=== PATIENT | male | born 1985 | race Native Hawaiian/Other Pacific Islander ===

== ENCOUNTER 2017-10-04 19:42 | Observation (INO) | payer BC ==
[2017-10-04] MEDS ORDERED: NS 1,000 ML IV ONE (19:43)
--- NOTE | 2017-10-04 19:54 | CPEKG ---
Heart Rate: 104 RR Interval: 577 P-R Interval: 140 QRSD Interval: 86 QT Interval: 364 QTC Interval: 479 P [place]: 30 QRS [place]: 32 T Wave [place]: 88 EKG Severity - ABNORMAL ECG - EKG Impression: SINUS TACHYCARDIA EKG Impression: LEFT ATRIAL ABNORMALITY EKG Impression: NONSPECIFIC T ABNORMALITIES, LATERAL LEADS EKG Impression: BORDERLINE PROLONGED QT INTERVAL Electronically Signed By: Frankie Monson 07-Oct-2017 20:50:02
--- NOTE | 2017-10-04 20:00 | EDPHY ---
HPI/HX/ROS/PE/MDM Narrative: CHIEF COMPLAINT: Seizure, altered mental status HPI: The patient is a 33-year-old male who was brought just waiting the [employer] triathlon today. At some point prior to arrival, he apparently had a seizure. EMS was contacted and the patient became extremely combative. They were forced to give the patient Versed in order to sedate him to be able to transport him to the hospital. Patient is postictal and confused per the report. At this point I do not have any information regarding the length or timing of his seizure. Patient is unable to provide me any history. Glucose in the field was normal. EKG in field showed sinus tachycardia. REVIEW OF SYSTEMS: Unable to obtain secondary altered mental status. PMH: Unable to obtain. SOCIAL HISTORY: Unable to obtain. PHYSICAL EXAM: General:Patient is heavily sedated and confused. Head: Hematoma present to left occiput. No laceration. No deformity/ depression. ENT:Eyes are normal to inspection. ENT inspection normal. Neck: Normal inspection. Full range of motion. Respiratory:No respiratory distress. Breath sounds normal bilaterally. Cardiovascular: Tachycardic rate, regular rhythm. Strong peripheral pulses. Normal cap refill. Abdomen:The abdomen is nontender to palpation. There are no peritoneal signs. Skin: Normal color. No rash. Warm and dry. Extremities: Normal appearance. Full range of motion. Neuro: No clear focal deficits but noncooperative with exam. (Bernard Salamanca) ED Course: Suspect seizure is related to electrolyte abnormality following [employer]. Plan for IV, labs, EKG, IV fluid repletion, and close monitoring. Labs show hyponatremia at 119. 100mL IV hypertonic NS ordered. 2049: Reassessed patient. He is still confused, but has improved from earlier. Family is now at bedside. Hypertonic NS is running. 2104: Patient is starting to fight again and is unable to follow commands. 1mg IV Ativan administered. He is trying to urinate. Two security guards at bedside assisting. 2110: Additional 1mg IV Ativan administered. Head CT ordered. HR 113. 2300: Patient given two more rounds of Ativan in order to sedate enough to obtain CTH to rule out traumatic etiology of his AMS. The patient has maintained a patent airway throughout. I personally walked to CT with patient in order to maintain constant assessment and assist with obtaining the study. I have asked for an additional 100ml bolus of hypertonic saline to be given. Patient signed out to Dr. Jacome. Patient will need to be admitted for further treatment and close observation. 2310: Ct read as negative for trauma by Dr. Infante. I spent a total of 90 minutes of critical care time in obtaining history, performing a physical exam, bedside monitoring of interventions, collecting and interpreting tests and discussion with consultants but not including time spent performing procedures. (Bernard Salamanca) 0239AM: Patient is sleepy and intermittently agitated. I am repeating his chemistry at this time. Patient will need to be admitted to the hospital most likely ICU admission for his level of agitation. I spoke with Dr. Barnes who agrees to admit. 0340AM; I reviewed this patient's chemistry is sodium is 127. After discussion with the hospitalist service we agreed to give him another dose of hypertonic saline. CK is noted to be elevated. His creatinine is normal. 0408AM: Spoke with Dr. Ayala with Nephrology. Discussed this case in detail. He will see in consult the patient. He does not want any normal saline her IV fluids at this time he is fine with hypertonic saline. Agrees for ICU admission. I discussed this case in detail with the hospitalist service. Of note this patient was in the emergency room for prolonged period of time as we are watching his mental status closely. He did receive large amount Ativan to get a CT scan given his head trauma. The patient has been sleeping most of the time in the emergency room he is still altered. There has been no further seizure activity. The patient need to go to the ICU due to altered mentation. Patient's complex with hyponatremia, along with a seizure that brought him to the emergency room along with benzodiazepines given initially for CT imaging. Discussed this case in detail with the junior brand manager as well as hospitalist service. 0413: At this time patient is stable. (Cristo Jacome) MDM: This patient presents with seizure and acute encephalopathy secondary to hyponatremia. I see no signs of intracranial bleed or other significant trauma. Patient was treated with hypertonic saline according to established guidelines. He will require admission to the hospital. (Bernard Salamanca) - Data Points Imaging Results: Imaging Impressions Head CT 10/04/17 21:13 Impression: No acute intracranial findings. Findings discussed with Bernard Salamanca MD 10/04/2017 at 22:08. Laboratory Results: Laboratory Results 10/04/17 19:48 10/05/17 02:48 10/05/17 10/04/17 10/04/17 02:48 22:19 21:29 WBC RBC Hgb POC Hgb 14.3 gm/dL gm/dL 14.3 gm/dL gm/dL (13.7-17.5) (13.7-17.5) Hct POC Hct 42 % % 42 % % (40-51) (40-51) MCV MCH MCHC RDW Plt Count MPV Neut % (Auto) Lymph % (Auto) [place] % (Auto) Eos % (Auto) Baso % (Auto) Nucleat RBC Rel Count Absolute Neuts (auto) Absolute Lymphs (auto) Absolute Monos (auto) Absolute Eos (auto) Absolute Basos (auto) Absolute Nucleated RBC Immature Gran % Immature Gran # POC Sodium 126 mEq/L L mEq/L 123 mEq/L L mEq/L (135-145) (135-145) Sodium 127 mEq/L L mEq/L (135-145) POC Potassium 3.7 mEq/L mEq/L 4.0 mEq/L mEq/L (3.3-5.0) (3.3-5.0) Potassium 4.8 mEq/L mEq/L (3.3-5.0) POC Chloride 87 mEq/L L mEq/L 85 mEq/L L mEq/L (97-110) (97-110) Chloride 96 mEq/L L mEq/L (97-110) Carbon Dioxide 21 mEq/l L mEq/l (22-31) Anion Gap 10 mEq/L mEq/L (8-16) POC BUN 16 mg/dL mg/dL 16 mg/dL mg/dL (7-23) (7-23) BUN 12 mg/dL mg/dL (7-23) Creatinine 0.7 mg/dL mg/dL (0.7-1.3) POC Creatinine 1.1 mg/dL mg/dL 1.0 mg/dL mg/dL (0.7-1.3) (0.7-1.3) Estimated GFR > 60 Glucose 116 mg/dL H mg/dL (70-100) POC Glucose 128 mg/dL H mg/dL 142 mg/dL H mg/dL (70-100) (70-100) Calcium 7.4 mg/dL L mg/dL (8.5-10.4) Creatine Kinase 02105 IU/L H IU/L (0-224) CK-MB (CK-2) Fraction 45.10 ng/mL H ng/mL (0.00-4.55) CK-MB (CK-2) % 0.4 % % (0.0-4.0) Creatine Kinase Interp NEGATIVE (NEGATIVE) POC Troponin I Specimen Hemolysis 202 10/04/17 10/04/17 10/04/17 21:01 19:52 19:48 WBC RBC Hgb POC Hgb 14.6 gm/dL gm/dL (13.7-17.5) Hct POC Hct 43 % % (40-51) MCV MCH MCHC RDW Plt Count MPV Neut % (Auto) Lymph % (Auto) [place] % (Auto) Eos % (Auto) Baso % (Auto) Nucleat RBC Rel Count Absolute Neuts (auto) Absolute Lymphs (auto) Absolute Monos (auto) Absolute Eos (auto) Absolute Basos (auto) Absolute Nucleated RBC Immature Gran % Immature Gran # POC Sodium 121 mEq/L L mEq/L (135-145) Sodium 119 mEq/L L* mEq/L (135-145) POC Potassium 4.7 mEq/L mEq/L (3.3-5.0) Potassium 4.1 mEq/L mEq/L (3.3-5.0) POC Chloride 83 mEq/L L mEq/L (97-110) Chloride 77 mEq/L L mEq/L (97-110) Carbon Dioxide 15 mEq/l L mEq/l (22-31) Anion Gap 27 mEq/L H mEq/L (8-16) POC BUN 16 mg/dL mg/dL (7-23) BUN 17 mg/dL mg/dL (7-23) Creatinine 1.1 mg/dL mg/dL (0.7-1.3) POC Creatinine 1.2 mg/dL mg/dL (0.7-1.3) Estimated GFR > 60 Glucose 130 mg/dL H mg/dL (70-100) POC Glucose 104 mg/dL H mg/dL (70-100) Calcium 9.7 mg/dL mg/dL (8.5-10.4) Creatine Kinase CK-MB (CK-2) Fraction CK-MB (CK-2) % Creatine Kinase Interp POC Troponin I 0.08 ng/mL ng/mL (0.00-0.08) Specimen Hemolysis 10/04/17 19:48 WBC 13.64 10^3/uL H 10^3/uL (3.80-9.50) RBC 4.95 10^6/uL 10^6/uL (4.40-6.38) Hgb 14.5 g/dL g/dL (13.7-17.5) POC Hgb Hct 41.4 % % (40.0-51.0) POC Hct MCV 83.6 fL fL (81.5-99.8) MCH 29.3 pg pg (27.9-34.1) MCHC 35.0 g/dL g/dL (32.4-36.7) RDW 12.9 % % (11.5-15.2) Plt Count 264 10^3/uL 10^3/uL (150-400) MPV 9.0 fL fL (8.7-11.7) Neut % (Auto) 82.0 % H % (39.3-74.2) Lymph % (Auto) 11.0 % L % (15.0-45.0) [place] % (Auto) 6.5 % % (4.5-13.0) Eos % (Auto) 0.0 % L % (0.6-7.6) Baso % (Auto) 0.1 % L % (0.3-1.7) Nucleat RBC Rel Count 0.0 % % (0.0-0.2) Absolute Neuts (auto) 11.17 10^3/uL H 10^3/uL (1.70-6.50) Absolute Lymphs (auto) 1.50 10^3/uL 10^3/uL (1.00-3.00) Absolute Monos (auto) 0.89 10^3/uL H 10^3/uL (0.30-0.80) Absolute Eos (auto) 0.00 10^3/uL L 10^3/uL (0.03-0.40) Absolute Basos (auto) 0.02 10^3/uL 10^3/uL (0.02-0.10) Absolute Nucleated RBC 0.00 10^3/uL 10^3/uL (0-0.01) Immature Gran % 0.4 % % (0.0-1.1) Immature Gran # 0.06 10^3/uL 10^3/uL (0.00-0.10) POC Sodium Sodium POC Potassium Potassium POC Chloride Chloride Carbon Dioxide Anion Gap POC BUN BUN Creatinine POC Creatinine Estimated GFR Glucose POC Glucose Calcium Creatine Kinase CK-MB (CK-2) Fraction CK-MB (CK-2) % Creatine Kinase Interp POC Troponin I Specimen Hemolysis Medications Given: Sodium Chloride (Sodium Chloride 3%) 500 mls @ 0 mls/hr IV CONT MARY PRN Reason: As Directed Stop: 04/02/18 20:29 Last Admin: 10/05/17 03:43 Dose: 100 mls Lorazepam (Ativan Injection) 2 mg IVP Q4HRS PRN PRN Reason: Anxiety, Unable to Take PO Stop: 04/02/18 21:11 Last Admin: 10/04/17 21:35 Dose: 2 mg Discontinued Medications Sodium Chloride (Ns) 1,000 mls @ 0 mls/hr IV EDNOW ONE; Wide Open PRN Reason: Protocol Stop: 10/04/17 19:44 Last Admin: 10/04/17 19:51 Dose: 1,000 mls Lorazepam (Ativan Injection) 2 mg IVP EDNOW ONE Stop: 10/04/17 21:33 Last Admin: 10/04/17 21:45 Dose: 2 mg Point of Care Test Results: Chemistry 10/04/17 10/04/17 10/04/17 22:19 21:29 21:01 POC Sodium 126 mEq/L L mEq/L 123 mEq/L L mEq/L 121 mEq/L L mEq/L (135-145) (135-145) (135-145) POC Potassium 3.7 mEq/L mEq/L 4.0 mEq/L mEq/L 4.7 mEq/L mEq/L (3.3-5.0) (3.3-5.0) (3.3-5.0) POC Chloride 87 mEq/L L mEq/L 85 mEq/L L mEq/L 83 mEq/L L mEq/L (97-110) (97-110) (97-110) POC BUN 16 mg/dL mg/dL 16 mg/dL mg/dL 16 mg/dL mg/dL (7-23) (7-23) (7-23) POC Creatinine 1.1 mg/dL mg/dL 1.0 mg/dL mg/dL 1.2 mg/dL mg/dL (0.7-1.3) (0.7-1.3) (0.7-1.3) POC Glucose 128 mg/dL H mg/dL 142 mg/dL H mg/dL 104 mg/dL H mg/dL (70-100) (70-100) (70-100) POC Troponin I 10/04/17 19:52 POC Sodium POC Potassium POC Chloride POC BUN POC Creatinine POC Glucose POC Troponin I 0.08 ng/mL ng/mL (0.00-0.08) ISTAT H&H 10/04/17 10/04/17 10/04/17 22:19 21:29 21:01 POC Hgb 14.3 gm/dL gm/dL 14.3 gm/dL gm/dL 14.6 gm/dL gm/dL (13.7-17.5) (13.7-17.5) (13.7-17.5) POC Hct 42 % % 42 % % 43 % % (40-51) (40-51) (40-51) General Time Seen by Provider: 10/04/17 19:44 Initial Vital Signs: Initial Vital Signs Temperature (C) 36.6 C 10/04/17 19:48 Heart Rate 102 H 10/04/17 19:48 Respiratory Rate 20 10/04/17 19:48 Blood Pressure 144/88 H 10/04/17 19:48 O2 Sat (%) 95 10/04/17 19:48 O2 Delivery Mode Room Air O2 (L/minute) 1 Allergies/Adverse Reactions: No Known Allergies Allergy (Unverified 10/04/17 20:38) Home Medications: Medication Instructions Recorded methYLPHENIDATE HCL [Ritalin 10mg 10 mg PO BID@,14 10/05/17 (*)] Departure - Departure Disposition: [facility] Acute Clinical Impression: Hyponatremia, Seizure Rhabdomyolysis Qualifiers: Rhabdomyolysis type: non-traumatic Qualified Code(s): M62.82 - Rhabdomyolysis Condition: Serious
[2017-10-04 20:09] LABS: PLATELET COUNT 264 10^3/uL (150-400)
[2017-10-04] MEDS: LORazepam 2 MG/ML INJ IVP PRN ×3 (20:35→21:35)
[2017-10-04] MEDS: SODIUM Cl 3% 500 ML IV SCH ×3 (20:45→22:02)
[2017-10-04] MEDS ORDERED: LORazepam 2 MG/ML INJ ONE (21:05)
[2017-10-04] MEDS ORDERED: LORazepam 2 MG/ML INJ IVP ONE (21:32)
[2017-10-05 03:38] LABS: CREATINE KINASE 11251 IU/L (0-224)
[2017-10-05] MEDS: SODIUM Cl 3% 500 ML IV SCH (03:43)
[2017-10-05] MEDS ORDERED: SODIUM Cl 3% 100 ML IV SCH (03:45)
--- NOTE | 2017-10-05 04:43 | PDGENHP ---
History and Physical - Chief Complaint Seizure - History of Present Illness 32 yo M who completed [employer] today presents after seizure. Patient brought to ED after a seizure. He was combative in route and received Versed. In the ED he received Ativan IV 6 mg total for intermittent agitation. Serum sodium was 119 on arrival. This has increased nicely with various doses of hypertonic saline. His mental status, however, remains poor and he continues to display intermittent bouts of agitation. CTH was unremarkable and CK was elevated. At the time of my evaluation patient is somnolent and cannot cooperate with history taking or provide additional information. History Information - Allergies/Home Medication List Allergies/Adverse Reactions: No Known Allergies Allergy (Unverified 10/04/17 20:38) Home Medications: Unobtainable 10/04/17 [Last Taken Unknown] I have personally reviewed and updated: family history, medical history - Past Medical History Additional medical history: Unobtainable 2/2 somnolence - Surgical History Additional surgical history: Unobtainable 2/2 somnolence - Family History Additional family history: Unobtainable 2/2 somnolence - Social History Smoking Status: Unknown if ever smoked Review of Systems Review of Systems: Unobtainable 2/2 somnolence Physical Exam Physical Exam: Temp Pulse Resp BP Pulse Ox 36.8 C 82 20 147/88 H 99 10/04/17 20:29 10/05/17 04:17 10/05/17 04:17 10/05/17 04:17 10/05/17 04:17 O2 (L/minute) 1 Constitutional: appears nourished, other (Somnolent) Eyes: PERRL, anicteric sclera Ears, Nose, Mouth, Throat: moist mucous membranes Cardiovascular: regular rate and rhythym, no murmur, rub, or gallop Respiratory: no respiratory distress, clear to auscultation Gastrointestinal: normoactive bowel sounds, soft, non-tender abdomen Skin: warm, normal color Musculoskeletal: full muscle strength, no joint effusions Neurologic: other (Somnolent, intermittently agitated), No weakness Psychiatric: encephalopathic, agitated Lab Data & Imaging Review 10/04/17 19:48 10/05/17 02:48 WBC 13.64 10^3/uL (3.80-9.50) H 10/04/17 19:48 RBC 4.95 10^6/uL (4.40-6.38) 10/04/17 19:48 Hgb 14.5 g/dL (13.7-17.5) 10/04/17 19:48 POC Hgb 14.3 gm/dL (13.7-17.5) 10/04/17 22:19 Hct 41.4 % (40.0-51.0) 10/04/17 19:48 POC Hct 42 % (40-51) 10/04/17 22:19 MCV 83.6 fL (81.5-99.8) 10/04/17 19:48 MCH 29.3 pg (27.9-34.1) 10/04/17 19:48 MCHC 35.0 g/dL (32.4-36.7) 10/04/17 19:48 RDW 12.9 % (11.5-15.2) 10/04/17 19:48 Plt Count 264 10^3/uL (150-400) 10/04/17 19:48 MPV 9.0 fL (8.7-11.7) 10/04/17 19:48 Neut % (Auto) 82.0 % (39.3-74.2) H 10/04/17 19:48 Lymph % (Auto) 11.0 % (15.0-45.0) L 10/04/17 19:48 [place] % (Auto) 6.5 % (4.5-13.0) 10/04/17 19:48 Eos % (Auto) 0.0 % (0.6-7.6) L 10/04/17 19:48 Baso % (Auto) 0.1 % (0.3-1.7) L 10/04/17 19:48 Nucleat RBC Rel Count 0.0 % (0.0-0.2) 10/04/17 19:48 Absolute Neuts (auto) 11.17 10^3/uL (1.70-6.50) H 10/04/17 19:48 Absolute Lymphs (auto) 1.50 10^3/uL (1.00-3.00) 10/04/17 19:48 Absolute Monos (auto) 0.89 10^3/uL (0.30-0.80) H 10/04/17 19:48 Absolute Eos (auto) 0.00 10^3/uL (0.03-0.40) L 10/04/17 19:48 Absolute Basos (auto) 0.02 10^3/uL (0.02-0.10) 10/04/17 19:48 Absolute Nucleated RBC 0.00 10^3/uL (0-0.01) 10/04/17 19:48 Immature Gran % 0.4 % (0.0-1.1) 10/04/17 19:48 Immature Gran # 0.06 10^3/uL (0.00-0.10) 10/04/17 19:48 POC Sodium 126 mEq/L (135-145) L 10/04/17 22:19 Sodium 127 mEq/L (135-145) L 10/05/17 02:48 POC Potassium 3.7 mEq/L (3.3-5.0) 10/04/17 22:19 Potassium 4.8 mEq/L (3.3-5.0) 10/05/17 02:48 POC Chloride 87 mEq/L (97-110) L 10/04/17 22:19 Chloride 96 mEq/L (97-110) L 10/05/17 02:48 Carbon Dioxide 21 mEq/l (22-31) L 10/05/17 02:48 Anion Gap 10 mEq/L (8-16) 10/05/17 02:48 POC BUN 16 mg/dL (7-23) 10/04/17 22:19 BUN 12 mg/dL (7-23) 10/05/17 02:48 Creatinine 0.7 mg/dL (0.7-1.3) 10/05/17 02:48 POC Creatinine 1.1 mg/dL (0.7-1.3) 10/04/17 22:19 Estimated GFR > 60 10/05/17 02:48 Glucose 116 mg/dL (70-100) H 10/05/17 02:48 POC Glucose 128 mg/dL (70-100) H 10/04/17 22:19 Calcium 7.4 mg/dL (8.5-10.4) L 10/05/17 02:48 Creatine Kinase 71674 IU/L (0-224) H 10/05/17 02:48 CK-MB (CK-2) Fraction 45.10 ng/mL (0.00-4.55) H 10/05/17 02:48 CK-MB (CK-2) % 0.4 % (0.0-4.0) 10/05/17 02:48 Creatine Kinase Interp NEGATIVE (NEGATIVE) 10/05/17 02:48 POC Troponin I 0.08 ng/mL (0.00-0.08) 10/04/17 19:52 Specimen Hemolysis 202 10/05/17 02:48 Imaging Review: Imaging Impressions Head CT 10/04/17 21:13 Impression: No acute intracranial findings. Findings discussed with Bernard Salamanca MD 10/04/2017 at 22:08. Visualized and Interpreted EKG results: Yes EKG Interpretation: Positive for: normal sinsus rhythm, NS ST wave abnormalities Assessment & Plan Assessment: 32 yo M completed [employer] today and presents with hyponatremia and seizure. Plan: 1. Acute, exercise induced hyponatremia - Presented with serum sodium of 119, which has increased to 127 on most recent check after several boluses of hypertonic saline. - Will give additional dose of hypertonic saline now noting mental status remains poor - Urine lytes, osms ordered - Renal service consulted, appreciate assistance - Discussed case with Dr. Steen - Trend BMP 2. Seizure - Most likely related to above, will replete sodium aggressively as above. - Seizure precautions 3. Acute toxic and metabolic encephalopathy - Multifactorial from post-ictal state, hyponatremia, and sedative medications. - Admit to ICU for close observation 4. Elevated CK - Exercise induced, will trend Diet - NPO Code - Full Ppx - Low risk Dispo - Admit under observation status
[2017-10-05] MEDS ORDERED: ONDANSETRON 4 MG/2 ML VIAL IVP PRN (04:47)
[2017-10-05] MEDS ORDERED: ACETAMINOPHEN 325 MG TAB PO PRN (04:47)
[2017-10-05] MEDS ORDERED: ONDANSETRON DISINTEGRATING 4 MG TAB PO PRN (04:47)
[2017-10-05] MEDS: LORazepam 2 MG/ML INJ IVP PRN (05:15)
--- NOTE | 2017-10-05 05:34 | SOAPPROG ---
[facility] Progress Note Assessment/Plan: Assessment: Nephrology consult dictated -A delta of 7 on his sodium should be adequate to improve his MS. Thus, I believe current MS is not due to his Exercise Associated Hyponatremia -He is making urine, and his hemodynamics look good. His Rhabdo at present does not appear severe. I cannot be sure of his vasopression status. Thus, I would not give NS at the present time -He should have ongoing serial Na checks. If his sodium drops to 125 or less, he can receive a repeat bolus of 100ml 3%saline -If his urine lytes return and his Urine Na + Urine K are less that 154, he could receive NS (if needed) without dropping his sodium level. Thanks Plan: 10/05/17 05:30 Objective: Vital Signs Temp Pulse Resp BP Pulse Ox 36.8 C 82 20 147/88 H 99 10/04/17 20:29 10/05/17 04:17 10/05/17 04:17 10/05/17 04:17 10/05/17 04:17 Laboratory Results 10/05/17 04:10 10/03/17 10/04/17 10/05/17 05:59 05:59 05:59 Intake Total 400 Balance 400 ICD10 Worksheet Patient Problems: Problems Problem Status Onset Hyponatremia Acute Rhabdomyolysis Acute Seizure Acute
[2017-10-05 05:48] LABS: CREATINE KINASE 11301 IU/L (0-224)
--- NOTE | 2017-10-05 06:20 | GCON ---
[f rep st] CONSULTATION NEPHROLOGY CONSULTATION DATE OF CONSULTATION: 10/05/2017 REASON FOR CONSULTATION: Severe exercise-induced hyponatremia. 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 He presented to the emergency room after having a seizure and f alling and striking the left side of his head. At present, he is awake and moving, but is disoriente d. Thus, I cannot obtain a meaningful history from him. The patient was transported to [facility]. He was combative on the transport and did receive some Versed. His initial vital signs demonstrated a blood pressure of 144/108 and a heart r ate of 102. He was afebrile. His initial laboratory studies showed a sodium level of 119. His CBC was remarkable for not being hemoconcentrated. The patient was given several 100 mL boluses of 3% sa line, and his sodium reached approximately 127. During this time, imaging was desired on the patient . He underwent a head CT, but this required 6 mg of Ativan to provide adequate sedation to obtain th e study. The head CT was unremarkable. Following these efforts, the patient was somnolent, primaril y relating to the medications. Thus it was difficult to assess the effects of the hypertonic treatme nt. During this time, the patient did appear to be making urine and also remained normotensive to sl ightly hypertensive. Additional laboratory findings include a creatine kinase of 11,251, drawn at 02 58. Presently, the patient has been transported to the emergency room. As noted, he is disoriented, but his vital signs are stable. He is producing urine. PAST MEDICAL HISTORY: Unobtainable at the present time. CURRENT MEDICATIONS: Unobtainable. FAMILY HISTORY: Unobtainable. SOCIAL HISTORY: Unobtainable. REVIEW OF SYSTEMS: Unobtainable. PHYSICAL EXAMINATION: GENERAL: At the time of exam, the patient is moving significantly. He is sadia rt and looking around, but is disoriented. VITAL SIGNS: Temperature 36.8, pulse 90, blood pressure 134/117. HEENT: Eyes: Sclerae clear. Oropharynx: Unable to examine. NECK: No lymphadenopathy o r thyromegaly. LUNGS: Clear to auscultation. CARDIOVASCULAR: Regular rate and rhythm without gall ops, rubs. ABDOMEN: Soft, without apparent tenderness. : Normal external anatomy. RECTAL: Def erred. EXTREMITIES: No lower extremity edema. INTEGUMENTARY: Generally clear. NEURO: The patien t is moving all extremities normally. He is awake and alert, but disoriented. LABORATORY STUDIES: Sodium 126, potassium 3.7, chloride 87, glucose 128. On admission, the patient had a bicarb of 15 and anion gap of 27. This is likely secondary to the seizure and represented a la ctic acidosis. His anion gap has closed, and his acidosis has corrected. IMPRESSION AND PLAN: 1. Severe exercise-induced hyponatremia. The patient did have severe acute hyponatremia, which in i ts exercise-associated setting, would be considered acute. He did receive appropriate therapy with m ultiple boluses of hypertonic saline. His sodium level is now 126. He is disoriented at the present time. 2. There are several questions that arise relating to his current state and his plan of care. First , is whether additional hypertonic saline should be given at the present time. Given the patient has had a delta of 7 or greater in his sodium level, any neuro benefits should have been obtained relati ng to increasing his serum sodium. Thus, I do not recommend giving additional boluses of hypertonic at the present time. Next, is the question of whether it is appropriate to give isotonic saline at t he present time. Even though the patient appears stable, is making urine, and his sodium level is im proved, I still could not be absolutely sure of the status of his vasopressin state. Isotonic saline in this setting can actually drop the serum sodium. Until we are able to ascertain that he is excre ting electrolyte free water, I would not give normal saline. Next, the patient does appear to be vol ume replete at the present time. His blood pressure is good, his heart rate is normal, he is not hem oconcentrated, and he is making urine. The main reason to give isotonic saline at this point would b e to offer renal protection in light of his creatine kinase. With relation to this, his creatine kin ase is not that elevated at the present time, so his rhabdomyolysis is not that severe. I have reque sted a random urine sodium, potassium, creatinine, and osmolality. We can determine his excretion of electrolyte free water and determine whether we wish to give normal saline and assure it will not dr op his serum sodium. However, as noted, I do not see the absolute indication for the saline at the p resent time, and those results have not yet returned. 3. Neurologic status. The patient remains disoriented. At this point, as noted above, I cannot asc ribe this to his hyponatremia given he has increased 7 from his previous level. The patient did stri ke his head and has also received significant Versed and Ativan. His initial combative state was a p ostictal state. Since that time, he has had benzodiazepines on board. He needs to be followed caref ully relating to his neurologic status, but again I do not believe additional doses of hypertonic anju ine are necessarily going to improve this. Thank you for allowing us to participate in this gentleman's care. We will continue following closel y with you. /[id number]/MODL
[2017-10-05] MEDS ORDERED: LORazepam 2 MG/ML INJ IV ONE (06:45)
[2017-10-05 07:25] LABS: CREATINE KINASE 11667 IU/L (0-224)
[2017-10-05] MEDS ORDERED: LORazepam 2 MG/ML INJ IV PRN (08:08)
[2017-10-05] MEDS: NS 1,000 ML IV SCH ×2 (09:08→17:15)
--- NOTE | 2017-10-05 09:12 | ASMTCMCOM ---
CM Note CM Note Notes: 32yr old male participant of the [employer], admitted for exercise induced hyponatremia, Sz, AMS. patient is and from [place]. CM not anticipating that he will have discharge needs. Date Signed: 10/05/2017 09:11 AM Electronically Signed By:Shari Purcell LCSW
[2017-10-05 11:10] LABS: CREATINE KINASE 10686 IU/L (0-224)
--- NOTE | 2017-10-05 11:10 | SOAPPROG ---
SOAP Progress Note Assessment/Plan: Assessment: hyponatremia, Na coming up appropriately seizure due to hyponatremia confusion, ? post ictal or perhaps post concussive syndrome after fall and hit his head rhabdomyolysis, CK still more than 11,000 Plan: continue frequent sodium checks agree with starting NS to help with rhabdo discussed with , all questions answered 10/05/17 11:06 Subjective: confused, still "I need to finish the [place]." denies pain nausea or vomiting no muscle aches or SOB Objective: Vital Signs Temp Pulse Resp BP Pulse Ox 37.1 C 79 20 118/59 L 100 10/05/17 08:00 10/05/17 10:00 10/05/17 10:00 10/05/17 10:00 10/05/17 10:00 10/04/17 10/05/17 10/06/17 05:59 05:59 05:59 Intake Total 400 Balance 400 Physical Exam - Physical Exam General Appearance: alert, other (confused) Neck: non-tender Respiratory: lungs clear, No rales, No rhonchi, No wheezing Cardiac/Chest: regular rate, rhythm, No edema, No friction rub Abdomen: normal bowel sounds, non-tender, soft Skin: normal color, warm/dry Neuro/Psych: alert (confused) ICD10 Worksheet Patient Problems: Problems Problem Status Onset Hyponatremia Acute Rhabdomyolysis Acute Seizure Acute
--- NOTE | 2017-10-05 15:08 | GCON ---
[f rep st] CONSULTATION CRITICAL CARE CONSULT DATE OF CONSULTATION: 10/05/2017 HISTORY OF PRESENT ILLNESS: This patient is a 32-year-old male who was competing in the [employer] yesterday and has little recollection of what happened, other than he had a witnessed seizure and fell to the ground and had an injury to his head. He was brought to the emergency department where a head CT showed no intracranial bleeding, but he had a sodium level of 119 and a CK level of 11,000. He was admitted to the intensive care unit, where he was observed overnight, and his mental status has cleared somewhat. Apparently, he was intermittently somnolent, as well as agitated and somewhat postictal. In any case, he was given 3% saline, along with normal saline drips, and his sodium has i mproved, as has mild increase in his CPK. His urine output has been adequate over this period of jovita e. He has few recollections of the event and remains mildly confused. PAST MEDICAL HISTORY: None. PAST SURGICAL HISTORY: None. FAMILY HISTORY: Noncontributory. SOCIAL HISTORY: He is a nonsmoker. CURRENT MEDICATIONS: Include Tylenol, p.r.n. Ativan, Ritalin, Zofran, and normal saline. PHYSICAL EXAM: VITAL SIGNS: He has been afebrile. His blood pressure is 133/75, heart rate 83, res pirations 18, oxygen saturation 97% on room air. GENERAL: He was a pleasant [place] male, in no apparent distress and able to speak in full sentences without using accessory muscles for breathi ng. HEENT: Pupils were equally round and reactive to light, nonicteric and noninjected. Mucous mem branes are moist, without erythema or exudate. There were no lacerations seen on his scalp. LUNGS: Breath sounds were clear to auscultation bilaterally, without wheezes, rubs or rales. HEART: Regul ar rate and rhythm, without murmurs, rubs, or gallops. ABDOMEN: Soft, nontender, nondistended, with out hepatosplenomegaly. EXTREMITIES: No clubbing, cyanosis, or edema. NEUROLOGICAL: Exam was nonf ocal, though he was somewhat confused. SKIN: Warm and dry, without evidence of rash. LABORATORY DATA: Includes his white count yesterday at 13.6, hematocrit 41, platelets 264. His sodi um was 119 on admission, is up to 127 now. The rest of his basic metabolic panel is normal. CPK was 1125 on admission, down to 10,686 now. Urinalysis was otherwise unremarkable, save for urine osmola lity of 287. ASSESSMENT/PLAN: 1. Hyponatremia, probably related to excess salt loss, as well as inadequate replacement. He has do ne much better now and seems to be resolving. 2. Seizure. This is probably related to #1. He is on no antiseizure medications at this time, but I doubt that he will need long-term seizure management. 3. Rhabdomyolysis. This is also stable. He is being managed by Renal. His CK has come down. He s hould continue with IV fluids, and he should clear by tomorrow. /[id number]/MODL
--- NOTE | 2017-10-05 19:45 | HOSPPROG ---
Hospitalist Progress Note Assessment/Plan: Prolonged service, direct patient care, in addition to the time originally spent on history and physical performed by Dr. Barnes, at bedside, face-to- face w/ patient and , from 11:40-12:10 (30 minutes), addressing the following: -on physical exam, patient is becoming more responsive, he is alert awake oriented x2 to person and place, not to time, his concentration is 5/7, he is directable, lethargic but responsive to verbal stimuli and is directable to commands -will remove patient's restraints, attempt to utilize only low-dose sedation if absolutely necessary -discussed with Dr. Dedrick Baker and Dr. Dedrick Ordoñez, given the patient's urine sodium level is low, and the patient is most likely hypovolemic with ongoing rhabdomyolysis and likely myoglobin in his urine, we will provide him with IV normal saline at 100 cc/hour, monitoring his serum sodium level closely to ensure that he does not experience worsening hyponatremia, monitoring serum sodium levels every 4 hr -CPK level remained at 11,000 today, continue monitor daily, monitor serum creatinine level as he is high risk for rhabdo induced renal injury -given the patient's mental status is improving, he should be safe to transition to a medical surge unit tomorrow a.m. If continues to improve -okay to initiate regular diet but hold free water and encourage only use of smoothies, Ensure, solute containing fluids -educated patient and his regarding the pathology of his presenting exercise associated hyponatremia induced seizure Objective: Vital Signs Temp Pulse Resp BP Pulse Ox 37.1 C 95 20 122/81 H 97 10/05/17 08:00 10/05/17 15:28 10/05/17 15:28 10/05/17 15:28 10/05/17 15:28 Laboratory Results 10/05/17 14:55 10/04/17 10/05/17 10/06/17 05:59 05:59 05:59 Intake Total 400 1271 Output Total 1972 Balance 400 -0360 ICD10 Worksheet Patient Problems: Problems Problem Status Onset Hyponatremia Acute Seizure Acute Rhabdomyolysis Acute
[2017-10-06 00:17] VITALS: BP 110/61
[2017-10-06 20:27] LABS: CREATINE KINASE 7770 IU/L (0-224)
--- NOTE | 2017-10-06 22:32 | GDS ---
[f rep st] DISCHARGE SUMMARY DISCHARGE DIAGNOSES: 1. Acute exercise-associated hyponatremia. 2. Acute seizure. 3. Acute traumatic closed head injury. 4. Acute encephalopathy. 5. Acute rhabdomyolysis. CONSULTATIONS DURING THIS ADMISSION: Nephrology. PROCEDURES DURING THIS ADMISSION: Head CT demonstrated no intracranial hemorrhage. CHIEF COMPLAINT: Acute seizure and encephalopathy. SUBJECTIVE: Patient is feeling well at the time of discharge. He is no longer encephalopathic. He does have some lingering posterior headache. PHYSICAL EXAM: VITAL SIGNS: Systolic blood pressure 110-140, heart rate 60-80, afebrile overnight, saturating well on room air, mobilizing at least 2 L of urine output. GENERAL: Alert, awake, orient ed x3, no apparent distress. Pain level is currently 0 10. NEUROLOGIC: Patient is moving all 4 ext remities. He has facial symmetry. PSYCH: He is no longer encephalopathic. He is cooperative and f ollows commands. He does have an impaired memory of recent events. LABORATORY VALUES: At the time of discharge, CPK 7800, creatinine 0.6, potassium 3.4, serum sodium 1 43, white blood cell count 4700. HOSPITAL COURSE: The patient presented with an acute seizure secondary to acute exercise-associated hyponatremia. The patient had been competing in the [employer], and he had severe hyponatremi a as a result, provoking a seizure and a fall on the race course. He experienced an acute traumatic closed head injury but did not experience any intracranial hemorrhage. Following his seizure, the pat ient was significantly agitated and required aggressive medication for safety and behavioral control. He was then noted to have significant acute encephalopathy, evidenced by global brain dysfunction, characterized by confusion, somnolence, disorientation, and this may have been secondary to a combina tion of closed head injury with postconcussive symptoms, as well as medication effect and metabolic e ffects of hyponatremia. He may have also been experiencing some postictal symptoms. He received hyp ertonic saline in the emergency department, as well as administration in the ICU. His serum sodium l evel improved, and he did not experience any recurrent seizures. He was seen by Nephrology, and they recommended initiating normal saline at a low rate, as the patient's urine sodium level was low. He did receive the normal saline to treat his rhabdomyolysis, as well as supportively while his mental status improved. On 10/05, the patient remained somewhat encephalopathic, and he was treated support ively, but on 10/06, his mental status was at his baseline. He did have some impaired short-term mem ory, and this may be secondary to either postconcussive syndrome or some mild anterograde amnesia fol lowing his seizure and hyponatremic encephalopathy. We have recommended that the patient not drive, as he and his family are headed back to [place] later today. The patient's will do the driving , and I have recommended that the patient follow up with a rehabilitation medicine specialist upon re turning to [place] to discuss postconcussive syndrome. I have also recommended that he follow up wi th a facility service associate to discuss proper hydration for high endurance challenges, as the patient fully int ends on engaging in these in the future. DISCHARGE MEDICATIONS: Please see official discharge medication reconciliation sheet in chart. Of petrona lamas, patient is being discharged on no additional medications, but I have recommended that he not charley e any nonsteroidal anti-inflammatory medications and that he only take Tylenol as needed for headache . DISCHARGE INSTRUCTIONS: As noted above, please follow up with an outpatient facility service associate, as well as a rehabilitation medicine specialist. Greater than 30 minutes were spent on direct patient care, as well as discharge planning and preparat ion. /[id number]/MODL
--- NOTE | 2017-10-07 14:56 | GCON ---
[facility] Patient Name: DESEAN ESTEVEZ Rpt#: [id number] Unit Number: [id number] Attending/ER Physician: Herber Barnes MD Patient Type: ADM Violet Adm Date/Source: 10/05/17 EMR Discharge Date: Primary Carrier: [place] OUT OF STATE PPO Signed CONSULTATION CRITICAL CARE CONSULT DATE OF CONSULTATION: 10/05/2017 HISTORY OF PRESENT ILLNESS: This patient is a 32-year-old male who was competing in the [employer] yesterday and has little recollection of what happened, other than he had a witnessed seizure and fell to the ground and had an injury to his head. He was brought to the emergency department where a head CT showed no intracranial bleeding, but he had a sodium level of 119 and a CK level of 11,000. He was admitted to the intensive care unit, where he was observed overnight, and his mental status has cleared somewhat. Apparently, he was intermittently somnolent, as well as agitated and somewhat postictal. In any case, he was given 3% saline, along with normal saline drips, and his sodium has improved, as has mild increase in his CPK. His urine output has been adequate over this period of time. He has few recollections of the event and remains mildly confused. PAST MEDICAL HISTORY: None. PAST SURGICAL HISTORY: None. FAMILY HISTORY: Noncontributory. SOCIAL HISTORY: He is a nonsmoker. CURRENT MEDICATIONS: Include Tylenol, p.r.n. Ativan, Ritalin, Zofran, and normal saline. PHYSICAL EXAM: VITAL SIGNS: He has been afebrile. His blood pressure is 133/75, heart rate 83, respirations 18, oxygen saturation 97% on room air. GENERAL: He was a pleasant [place] male , in no apparent distress and able to speak in full sentences without using accessory muscles for breathing. HEENT: Pupils were equally round and reactive to light, nonicteric and noninjected. Mucous membranes are moist, without erythema or exudate. There were no lacerations seen on his scalp. LUNGS: Breath sounds were clear to auscultation bilaterally, without wheezes, rubs or rales. HEART: Regular rate and rhythm, without murmurs, rubs, or gallops. ABDOMEN: Soft, nontender, nondistended, without hepatosplenomegaly. EXTREMITIES: No clubbing, cyanosis, or edema. NEUROLOGICAL: Exam was nonfocal, though he was somewhat confused. SKIN: Warm and dry, without evidence of rash. LABORATORY DATA: Includes his white count yesterday at 13.6, hematocrit 41, platelets 264. His sodium was 119 on admission, is up to 127 now. The rest of his basic metabolic panel is normal. CPK was 1125 on admission, down to 10,686 now. Urinalysis was otherwise unremarkable, save for urine osmolality of 287. ASSESSMENT/PLAN: 1. Hyponatremia, probably related to excess salt loss, as well as inadequate replacement. He has done much better now and seems to be resolving. 2. Seizure. This is probably related to #1. He is on no antiseizure medications at this time, but I doubt that he will need long-term seizure management. 3. Rhabdomyolysis. This is also stable. He is being managed by Renal. His CK has come down. He should continue with IV fluids, and he should clear by tomorrow. /[id number]/MODL NOTE: At the time of senior materials analyst of this report, there may have been blank(s) to be edited by the dictating clinician. By signing this report, I attest that I have reviewed any blanks in the document, and have either corrected them and/or have no further information to add. Daniel Ordoñez MD 10/06/17 [id number] <Electronically signed by Daniel Ordoñez MD> [id number] T: MOY 10/05/17 1500 CC: Daniel Ordoñez MD
== END 2017-10-06 12:38 | disposition home or self-care (01) ==
LOC: EDBD 19:42 → INTOOBSV 10-05 03:56 → F2N 10-05 05:16
PROVIDERS: ADMIT Student in an Organized Health Care Education/Training Program; ATTEND Internal Medicine
DX: E87.1 Hypo-osmolality and hyponatremia (principal); R56.9 Unspecified convulsions; G93.41 Metabolic encephalopathy; M62.82 Rhabdomyolysis; E86.9 Volume depletion, unspecified; R41.3 Other amnesia; S09.90XA Unspecified injury of head, initial encounter; W19.XXXA Unspecified fall, initial encounter; Y92.830 Public park as the place of occurrence of the external cause; R40.2421 Glasgow coma scale score 9-12, in the field [EMT or ambulance]; Y93.89 Activity, other specified; Y99.8 Other external cause status
CPT/HCPCS: 70450; 92523; 93005; G0378; 82435-PO; 82565-PO; 82947-PO; 84132-PO; 84295-PO; 84484-PO; 84520-PO; 85014-PO; 96374; J2060